=== PATIENT | female | born 1965 | race Native Hawaiian/Other Pacific Islander ===

== ENCOUNTER 2017-09-22 13:51 | Inpatient (IN) | payer BC ==
[2017-09-22 13:54] VITALS: BMI 25.4
--- NOTE | 2017-09-22 14:09 | ED PDOC ---
Arrival/HPI - General Chief Complaint: Psychiatric Evaluation Time Seen by Provider: 09/22/17 13:57 Historian: Patient, Family (patient's children gave preliminary info ) - History of Present Illness Narrative History of Present Illness (Text): 09/22/17 14:10 51 year old female, with a past medical history that includes hypertension, presents to the emergency department for evaluation s/p suicidal overdose, at 12 :00. Family reports she found out her was cheating on her, and became depressed and suicidal. Family states a family member had to remove all sharp objects that could be used as weapons. Family states she then found Naproxen and consumed approximately 30 tabs. Patient states she does not remember how many pills she took. Patient also states she is feeling nauseous. Patient denies any fever, chills, headache, dizziness, chest pain, shortness of breath, cough, abdominal pain, vomiting, diarrhea, back pain, neck pain, urinary/bowel changes, or any other complaint. 09/22/17 16:56 Time/Duration: 1-3 hours Symptom Onset: Sudden Symptom Course: Unchanged Activities at Onset: Light Context: Home Past Medical History - Provider Review Nursing Documentation Reviewed: Yes - Cardiac Hx Hypertension: Yes - Psychiatric Hx Substance Use: No - Surgical History Hx Orthopedic Surgery: Yes Family/Social History - Physician Review Nursing Documentation Reviewed: Yes Family/Social History: No Known Family HX Smoking Status: Never Smoked Hx Alcohol Use: No Hx Substance Use: No Allergies/Home Meds Allergies/Adverse Reactions: Allergies No Known Allergies Allergy (Verified 09/22/17 13:57) Home Medications: Home Meds Medication Instructions Recorded Confirmed Olmesartan Medoxomil [Benicar] 20 mg PO DAILY 09/22/17 09/22/17 Review of Systems - Physician Review All systems were reviewed & negative as marked: Yes - Review of Systems Constitutional: Normal. absent: Fevers, Night Sweats Eyes: Normal ENT: Normal Respiratory: Normal. absent: SOB, Cough Cardiovascular: Normal. absent: Chest Pain Gastrointestinal: Nausea. absent: Abdominal Pain, Diarrhea, Vomiting Genitourinary Female: Normal. absent: Urine Output Changes Musculoskeletal: Normal. absent: Back Pain, Neck Pain Skin: Normal Neurological: Normal. absent: Headache, Dizziness Endocrine: Normal Hemo/Lymphatic: Normal Psychiatric: Depression (s/p finding out about cheating ), Suicidal Ideation (s/p finding out about cheating ) Physical Exam Vital Signs Reviewed: Yes Vital Signs Temp Pulse Resp BP Pulse Ox 09/22/17 17:00 86 18 110/70 98 09/22/17 15:52 97.6 F 87 18 104/60 98 09/22/17 13:52 98.3 F 96 H 18 131/70 100 Temperature: Afebrile Blood Pressure: Normal Pulse: Regular Respiratory Rate: Normal Appearance: Positive for: Well-Appearing, Non-Toxic, Comfortable Pain Distress: None Mental Status: Positive for: Alert and Oriented X 3 - Systems Exam Head: Present: Atraumatic, Normocephalic Pupils: Present: PERRL Extroacular Muscles: Present: EOMI Conjunctiva: Present: Normal Mouth: Present: Moist Mucous Membranes Neck: Present: Normal Range of Motion Respiratory/Chest: Present: Clear to Auscultation, Good Air Exchange. No: Respiratory Distress, Accessory Muscle Use Cardiovascular: Present: Regular Rate and Rhythm, Normal S1, S2. No: Murmurs Abdomen: No: Tenderness, Distention, Peritoneal Signs Back: Present: Normal Inspection Upper Extremity: Present: Normal Inspection. No: Cyanosis, Edema Lower Extremity: Present: Normal Inspection. No: Edema Neurological: Present: GCS=15, CN II-XII Intact, Speech Normal Skin: Present: Warm, Dry, Normal Color. No: Rashes Psychiatric: Present: Alert, Oriented x 3, Normal Insight, Normal Concentration Medical Decision Making ED Course and Treatment: 09/22/17 14:20 Impression: 51 year old female presents to the emergency department with an overdose. pt report naproxen. Plan: -- EKG -- Labs -- Chest X-ray -- Zofran -- Urinalysis -- Reassess and disposition Prior Visits: Notes and results from previous visits were reviewed. Progress Notes: 09/22/17 14:41 EKG reviewed, shows: Normal sinus rhythm @ 62bpm QTc measure of [address] and T changes 09/22/17 15:00 Chest X-ray reviewed by radiologist, shows: Poor inspiration with low lung volumes, crowded bronchovascular markings and minor bibasilar atelectasis bibasilar atelectasis. 09/22/17 15:07 Discussed case with poison control, recommend supportive management. state pt can be medically cleared. 09/22/17 16:55 pt reassesed observed 3+ hours. nausea resolved. no vomiting sleeping in nad. medically cleared. accepted to psych. 09/22/17 16:56 - Lab Interpretations Lab Results: 09/22/17 14:24 09/22/17 14:24 Lab Results 09/22/17 16:05: Urine Opiates Screen Negative, Urine Methadone Screen Negative, Ur Barbiturates Screen Negative, Ur Phencyclidine Scrn Negative, Ur Amphetamines Screen Negative, U Benzodiazepines Scrn Negative, U Oth Cocaine Metabols Negative, U Cannabinoids Screen Negative 09/22/17 16:05: Urine Color Yellow, Urine Appearance Clear, Urine pH 6.0, Ur Specific [place] 1.010, Urine Protein Negative, Urine Glucose (UA) Negative, Urine Ketones Trace H, Urine Blood Trace-intact H, Urine Nitrate Negative, Urine Bilirubin Negative, Urine Urobilinogen 0.2, Ur Leukocyte Esterase Negative , Urine RBC 2 - 5, Urine WBC 0 - 2, Ur Epithelial Cells 4 - 5, Urine Bacteria Mod, Urine HCG, Qual Negative 09/22/17 14:24: Alcohol, Quantitative < 10 09/22/17 14:24: Salicylates < 1 L, Acetaminophen < 10.0 L 09/22/17 14:24: Sodium 140, Potassium 3.4 L, Chloride 104, Carbon Dioxide 21, Anion Gap 18, BUN 9, Creatinine 0.5 L, Est GFR ( Amer) > 60, Est GFR (Non -Af Amer) > 60, Random Glucose 124 H, Calcium 9.5, Magnesium 2.0, Total Bilirubin 1.6 H, AST 22, ALT 25, Alkaline Phosphatase 64, Total Protein 7.6, Albumin 4.1, Globulin 3.5, Albumin/Globulin Ratio 1.2 09/22/17 14:24: WBC 11.3 H, RBC 4.63, Hgb 12.1, Hct 35.7 L, MCV 77.1 L, MCH 26.1 , MCHC 33.9, RDW 15.9 H, Plt Count 377, MPV 9.0, Gran % 76.0 H, Lymph % (Auto) 18.2 L, [place] % (Auto) 5.4, Eos % (Auto) 0.2 L, Baso % (Auto) 0.2, Gran # 8.59 H , Lymph # (Auto) 2.1, [place] # (Auto) 0.6, Eos # (Auto) 0.0, Baso # (Auto) 0.02 - RAD Interpretation Radiology Orders: 09/22/17 14:07 CHEST PORTABLE [RAD] Stat - Medication Orders Current Medication Orders: Acetaminophen (Tylenol 325mg Tab) 650 mg PO Q6 PRN PRN Reason: Pain, Mild (1-3) Al Hydrox/Mg Hydrox/Simethicone (Maalox Plus 30 Ml) 30 ml PO DAILY PRN PRN Reason: Indigestion / Heartburn Ibuprofen (Motrin Tab) 400 mg PO Q6 PRN PRN Reason: Pain, moderate (4-7) Magnesium Hydroxide (Milk Of Magnesia) 30 ml PO DAILY PRN PRN Reason: Constipation Zaleplon (Sonata) 5 mg PO HS PRN PRN Reason: Insomnia Discontinued Medications Sodium Chloride (Sodium Chloride 0.9%) 1,000 mls @ 999 mls/hr IV .Q1H1M STA Stop: 09/22/17 15:54 Last Admin: 09/22/17 15:00 Dose: 999 mls/hr eMAR Start Stop Document 09/22/17 15:00 EWO (Rec: 09/22/17 15:00 [facility] [id number]) Intravenous Solution Start Date 09/22/17 Start Time 15:00 End Date 09/22/17 End time 16:00 Total Infusion Time 60 Ondansetron HCl (Zofran Inj) 4 mg IVP STAT STA Stop: 09/22/17 14:14 Last Admin: 09/22/17 14:22 Dose: 4 mg IVP Administration Document 09/22/17 14:22 EWO (Rec: 09/22/17 14:23 EWO [id number]) Charges for Administration # of IVP Administrations 1 Ondansetron HCl (Zofran Inj) 4 mg IVP STAT STA Stop: 09/22/17 14:55 Last Admin: 09/22/17 15:00 Dose: 4 mg IVP Administration Document 09/22/17 15:00 EWO (Rec: 09/22/17 15:00 O [id number]) Charges for Administration # of IVP Administrations 1 - Scribe Statement The provider has reviewed the documentation as recorded by the Scribkrystina Csaon All medical record entries made by the Donitaibe were at my direction and personally dictated by me. I have reviewed the chart and agree that the record accurately reflects my personal performance of the history, physical exam, medical decision making, and the department course for this patient. I have also personally directed, reviewed, and agree with the discharge instructions and disposition. Disposition/Present on Arrival - Present on Arrival Any Indicators Present on Arrival: No History of DVT/PE: No History of Uncontrolled Diabetes: No Urinary Catheter: No History of Decub. Ulcer: No History Surgical Site Infection Following: None - Disposition Have Diagnosis and Disposition been Completed?: Yes Diagnosis: Overdose, Depression Disposition: HOSPITALIZED Disposition Time: 16:58 Patient Problems: Current Active Problems Problem Status Onset Depression Acute Overdose Acute Condition: STABLE
[2017-09-22 14:31] LABS: BASO # 0.02 K/mm3 (0.0-2.0); BASO % 0.2 % (0.0-3.0); EOS % 0.2 % (1.5-5.0); GRAN # 8.59 (1.4-6.5); HEMOGLOBIN 12.1 g/dL (12.0-16.0); LYMPH # 2.1 (1.2-3.4); LYMPH % 18.2 % (22.0-35.0); MEAN CELL VOLUME 77.1 fl (80.0-105.0); MEAN CORPUSCULAR HEMOGLOBIN 26.1 pg (25.0-35.0); MEAN CORPUSCULAR HGB CONC 33.9 g/dl (31.0-37.0); MONO # 0.6 (0.1-0.6); MONO % 5.4 % (1.0-6.0); RBC 4.63 10^6/uL (3.5-6.1); RED CELL DISTRIBUTION WIDTH 15.9 % (11.5-14.5); WHITE BLOOD COUNT 11.3 10^3/ul (4.5-11.0)
--- NOTE | 2017-09-22 14:31 | RAD ---
Date of service: 09/22/2017 HISTORY: pysch COMPARISON: Comparison chest 12/16/2013 FINDINGS: LUNGS: Poor inspiration with low lung volumes, crowded bronchovascular markings and minor bibasilar atelectasis bibasilar atelectasis. PLEURA: No significant pleural effusion identified, no pneumothorax apparent. CARDIOVASCULAR: Heart size upper limits of normal OSSEOUS STRUCTURES: No significant abnormalities. VISUALIZED UPPER ABDOMEN: Normal. OTHER FINDINGS: None. IMPRESSION: Poor inspiration with low lung volumes, crowded bronchovascular markings and minor bibasilar atelectasis bibasilar atelectasis.
[2017-09-22 14:40] LABS: ACETAMINOPHEN < 10.0 ug/ml (10.0-20.0); ALB/GLOB RATIO 1.2 (1.1-1.8); ALBUMIN 4.1 g/dL (3.0-4.8); ALT/SGPT 25 U/L (7-56); AST/SGOT 22 U/L (14-36); BLOOD UREA NITROGEN 9 mg/dL (7-21); CALCIUM 9.5 mg/dL (8.4-10.5); GFR AFRICAN-AMERICAN > 60; GFR NON-AFRICAN AMERICAN > 60; SALICYLATE < 1 mg/dL (2.0-20.0)
[2017-09-22] MEDS ORDERED: Sodium Chloride 0.9% 1,000 ML IV STA (14:54)
[2017-09-22 16:46] LABS: URINE BILIRUBIN NEGATIVE (NEGATIVE); URINE BLOOD TRACE-INTACT (NEGATIVE); URINE GLUCOSE (UA) NEGATIVE (NEGATIVE); URINE LEUKOCYTE ESTERASE NEGATIVE Leu/uL (NEGATIVE); URINE PROTEIN NEGATIVE mg/dL (<30 mg/dL); URINE UROBILINOGEN 0.2 E.U./dL (<1 E.U./dL)
[2017-09-22 16:47] LABS: URINE COLOR YELLOW (YELLOW)
[2017-09-22 16:48] LABS: URINE APPEARANCE CLEAR (CLEAR)
[2017-09-22 16:49] LABS: HCG,QUALITATIVE URINE NEGATIVE (NEGATIVE)
[2017-09-22 16:51] LABS: URINE BACTERIA MOD (NEG); URINE WBC 0 - 2 /hpf (0-6)
[2017-09-22 17:01] LABS: BARBITURATES, UR NEGATIVE (NEGATIVE); BENZODIAZEPINES, UR NEGATIVE (NEGATIVE); OPIATES, UR NEGATIVE (NEGATIVE); PHENCYCLIDINE, UR NEGATIVE (NEGATIVE)
[2017-09-22 17:44] VITALS: O2SAT 99
[2017-09-22] MEDS ORDERED: Magnesium Hydroxide Susp 30 ml UD PO PRN (19:09)
[2017-09-22] MEDS ORDERED: Alum-Mag Hydrox-Simethicone Susp (30 mL) PO PRN (19:10)
--- NOTE | 2017-09-23 06:50 | PCM.BM ---
<Nuris Mercedes - Last Filed: 09/23/17 06:50> Treatment Plan Problems - Problems identified on initial assessmt high risk suicide Date Initiated: 09/22/17 Time Initiated: 20:35 Assessment reference: NA Status: Active ineffective coping Date Initiated: 09/22/17 Time Initiated: 20:35 Date resolved: 09/22/17 Assessment reference: NA Status: Active hopelessness and helplessness Date Initiated: 09/22/17 Time Initiated: 20:35 Assessment reference: NA Status: Active <Alexus Martinez - Last Filed: 09/23/17 10:29> - Diagnosis (1) Depression Status: Acute Interventions: group, milieu and supportive tx Psychiatric medications will not be restarted at this time. These symptoms appear temporary and adjustment related Outreach to family for further collateral. Patient gives consent to speak with her adult children. 09/23/17 10:29 <Venus Brantley - Last Filed: 09/24/17 16:48> Family Contact Family involvement: Family/SO is involved Family contact name: Cynthia Tipton(daughter) Family contacted how many times per week?: 2 <Mini Velasquez - Last Filed: 09/25/17 10:14> Treatment Plan Problems - Problems identified on initial assessmt high risk suicide Date Initiated: 09/22/17 Time Initiated: 20:35 Assessment reference: NA Status: Active ineffective coping Date Initiated: 09/22/17 Time Initiated: 20:35 Date resolved: 09/22/17 Assessment reference: NA Status: Active hopelessness and helplessness Date Initiated: 09/22/17 Time Initiated: 20:35 Assessment reference: NA Status: Active
[2017-09-23 07:22] VITALS: RESP 20
[2017-09-23 07:30] LABS: HDL CHOLESTEROL 65 mg/dL (29-60)
[2017-09-23 07:40] LABS: LDL CHOLESTEROL 97 mg/dL (0-129)
--- NOTE | 2017-09-23 10:29 | PCM.PSYCH ---
Initial Psychiatric Evaluation - Initial Psychiatric Evaluation Type of Admission: Voluntary Patient's Reaction to Hospitalization: Patient is a 51 year old Iranian female, with no formal psychiatric history who presented to the ER yesterday s/p impulsive overdose of 30 Naproxen tablets after learning that her was cheating on her while he was in the [facility]. During my interview at bedside, patient presents as calm, coherent and goal directed. She is well-oriented to month, year, location and circumstances. Patient has no history of depression or similar prior incidents. Patient indicated that the overdose was "impulsive, stupid and dumb". She is remorseful about her behavior and reports that she never wanted to . States she just wanted to sleep [to escape the knowledge of her husbands affair]. Patient learned that her was cheating by checking his facebook messages. ER notes indicate that family reported patient was very upset and threatened to harm herself. Family felt that they had to remove all sharp objects as a precautionary measure and found the empty bottle of Naproxen. Thereafter they called for an ambulance. Patient has been in good control on the unit and has consistently reported that she has no plan to ever harm herself again. She does seem to be demonstrating the appropriate level of remorse in consideration of her actions though was initially guarded regarding how she learned of her husbands affair (patient was reassured that this information would not be shared). Her affect is constricted however this may be secondary to reported ongoing nausea from naproxen overdose. She is clearly not hallucination or having any difficulties with perceptual disturbance. Patient wants to go home and expresses intent to submit 48 hour letter. Of note: patient has traveled back from the [facility] yesterday and in [place] at this time. PSYCHIATRIC HISTORY No outpatient No medications No inpatient No prior SA SOCIAL HISTORY Patient was born and raised in the [facility]. x 23 years. She has a 23 yo daughter Jumana and 25 yo son Rudy. Patient resides with her and adult son. They rent an apartment house. 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 Her works in [employer]. Patient does not have any drug, alcohol or tobacco issues. Current Medications: Active Medications Generic Name Dose Route Start Last Admin Trade Name Freq PRN Reason Stop Dose Admin Acetaminophen 650 mg 09/22/17 18:51 Tylenol 325mg Tab PO Q6 PRN Pain, Mild (1-3) Al Hydrox/Mg Hydrox/Simethicone 30 ml 09/22/17 19:10 Maalox Plus 30 Ml PO DAILY PRN Indigestion / Heartburn Ibuprofen 400 mg 09/22/17 18:51 Motrin Tab PO Q6 PRN Pain, moderate (4-7) Magnesium Hydroxide 30 ml 09/22/17 19:09 Milk Of Magnesia PO DAILY PRN Constipation Zaleplon 5 mg 09/22/17 22:00 Sonata PO HS PRN Insomnia Past Psychiatric History - Past Psychiatric History Pertinent Medical Hx (Current Medical&Sleep Prob, Allergies): Allergies Allergy/AdvReac Type Severity Reaction Status Date / Time No Known Allergies Allergy Verified 09/22/17 13:57 Olmesartan Medoxomil [Benicar] 20 mg PO DAILY 09/22/17 Mental Status Examination - Personal Presentation Personal Presentation: Looks stated age - Affect Affect: Constricted - Motor Activity Motor Activity: Calm - Reliability in Providing Information Reliability in Providing Information: Fair - Speech Speech: Organized - Mood Mood: Depressed, Neutral - Formal Thought Process Formal Thought Process: No Impairment - Obsessions/Compulsions Obsessions: No Compulsions: No - Cognitive Functions Orientation: Person, Place, Situation, Time Sensorium: Alert Attention/Concentration: Attentive Estimate of Intelligence: Average Memory: Recent intact, as evidence by: Ability to recall events of the day, Remote intact, as evidenced by: Abilit to recall sig. life events, Remote intact , as evidenced by: Ability to recall historical events - Risk Risk: Suicidal - Strength & Assets Inventory Strength & Assets Inventory: Intelligence, Family support, Employment status, Cooperative DSM 5 DX - DSM 5 DSM 5 Diagnosis: Adjustment disorder with depression - Recommended/Plan of Treatment Treatment Recommendations and Plan of Treatment: * group, milieu and supportive tx * Psychiatric medications will not be restarted at this time. These symptoms appear temporary and adjustment related * Outreach to family for further collateral. Patient gives consent to speak with her adult children. * Vitals reviewed and noted below: Selected Entries 09/23/17 07:28 Temperature 97.5 F L Pulse Rate 87 Respiratory 20 Rate Blood Pressure 116/76 * Admission labs noted below: Laboratory Tests 09/22/17 09/22/17 09/22/17 14:24 14:24 14:24 WBC 11.3 H RBC 4.63 Hgb 12.1 Hct 35.7 L MCV 77.1 L MCH 26.1 MCHC 33.9 RDW 15.9 H Plt Count 377 MPV 9.0 Gran % 76.0 H Lymph % (Auto) 18.2 L [place] % (Auto) 5.4 Eos % (Auto) 0.2 L Baso % (Auto) 0.2 Gran # 8.59 H Lymph # (Auto) 2.1 [place] # (Auto) 0.6 Eos # (Auto) 0.0 Baso # (Auto) 0.02 Sodium 140 Potassium 3.4 L Chloride 104 Carbon Dioxide 21 Anion Gap 18 BUN 9 Creatinine 0.5 L Est GFR ( Amer) > 60 Est GFR (Non-Af Amer) > 60 Random Glucose 124 H Calcium 9.5 Magnesium 2.0 Total Bilirubin 1.6 H AST 22 ALT 25 Alkaline Phosphatase 64 Total Protein 7.6 Albumin 4.1 Globulin 3.5 Albumin/Globulin Ratio 1.2 Triglycerides Cholesterol LDL Cholesterol Direct HDL Cholesterol Urine Color Urine Appearance Urine pH Ur Specific [place] Urine Protein Urine Glucose (UA) Urine Ketones Urine Blood Urine Nitrate Urine Bilirubin Urine Urobilinogen Ur Leukocyte Esterase Urine RBC Urine WBC Ur Epithelial Cells Urine Bacteria Urine HCG, Qual Salicylates < 1 L Urine Opiates Screen Urine Methadone Screen Acetaminophen < 10.0 L Ur Barbiturates Screen Ur Phencyclidine Scrn Ur Amphetamines Screen U Benzodiazepines Scrn U Oth Cocaine Metabols U Cannabinoids Screen Alcohol, Quantitative 09/22/17 09/22/17 09/22/17 14:24 16:05 16:05 WBC RBC Hgb Hct MCV MCH MCHC RDW Plt Count MPV Gran % Lymph % (Auto) [place] % (Auto) Eos % (Auto) Baso % (Auto) Gran # Lymph # (Auto) [place] # (Auto) Eos # (Auto) Baso # (Auto) Sodium Potassium Chloride Carbon Dioxide Anion Gap BUN Creatinine Est GFR ( Amer) Est GFR (Non-Af Amer) Random Glucose Calcium Magnesium Total Bilirubin AST ALT Alkaline Phosphatase Total Protein Albumin Globulin Albumin/Globulin Ratio Triglycerides Cholesterol LDL Cholesterol Direct HDL Cholesterol Urine Color Yellow Urine Appearance Clear Urine pH 6.0 Ur Specific [place] 1.010 Urine Protein Negative Urine Glucose (UA) Negative Urine Ketones Trace H Urine Blood Trace-intact H Urine Nitrate Negative Urine Bilirubin Negative Urine Urobilinogen 0.2 Ur Leukocyte Esterase Negative Urine RBC 2 - 5 Urine WBC 0 - 2 Ur Epithelial Cells 4 - 5 Urine Bacteria Mod Urine HCG, Qual Negative Salicylates Urine Opiates Screen Negative Urine Methadone Screen Negative Acetaminophen Ur Barbiturates Screen Negative Ur Phencyclidine Scrn Negative Ur Amphetamines Screen Negative U Benzodiazepines Scrn Negative U Oth Cocaine Metabols Negative U Cannabinoids Screen Negative Alcohol, Quantitative < 10 09/23/17 07:00 WBC RBC Hgb Hct MCV MCH MCHC RDW Plt Count MPV Gran % Lymph % (Auto) [place] % (Auto) Eos % (Auto) Baso % (Auto) Gran # Lymph # (Auto) [place] # (Auto) Eos # (Auto) Baso # (Auto) Sodium Potassium Chloride Carbon Dioxide Anion Gap BUN Creatinine Est GFR ( Amer) Est GFR (Non-Af Amer) Random Glucose Calcium Magnesium Total Bilirubin AST ALT Alkaline Phosphatase Total Protein Albumin Globulin Albumin/Globulin Ratio Triglycerides 51 Cholesterol 201 H LDL Cholesterol Direct 97 HDL Cholesterol 65 H Urine Color Urine Appearance Urine pH Ur Specific [place] Urine Protein Urine Glucose (UA) Urine Ketones Urine Blood Urine Nitrate Urine Bilirubin Urine Urobilinogen Ur Leukocyte Esterase Urine RBC Urine WBC Ur Epithelial Cells Urine Bacteria Urine HCG, Qual Salicylates Urine Opiates Screen Urine Methadone Screen Acetaminophen Ur Barbiturates Screen Ur Phencyclidine Scrn Ur Amphetamines Screen U Benzodiazepines Scrn U Oth Cocaine Metabols U Cannabinoids Screen Alcohol, Quantitative - Smoking Cessation Smoking Cessation Initiated: No
[2017-09-23] MEDS ORDERED: Potassium Chloride 20 mEq ER Tab PO ONE (10:36)
[2017-09-23] MEDS ORDERED: Pantoprazole 40 mg EC Tab PO STA ×2 (12:34→16:18)
--- NOTE | 2017-09-23 16:24 | CARD ---
APPROVED REPORT Date of service: 09/22/2017 EKG Measurement Heart [id number] <Conclusion> Sinus rhythm with 1st degree AV block Nonspecific T wave abnormality Prolonged QT Abnormal ECG
--- NOTE | 2017-09-23 16:44 | CON ---
Copied To: Song Ortega DO Attending MD: Song Ortega DO DATE: 09/23/2017 HISTORY OF PRESENT ILLNESS: I was consulted to the Psychiatric floor. She is a 51-year-old white female who presents that she found out that her was cheating on her and became very depressed and suicidal. Family members had to remove sharp objects away from her because she would use it as weapons. Then, she consumed 30 tablets of naproxen, she did not remember how many tablets, but she thought it was more than 30. She is also feeling nauseous and threw up a few times. PAST MEDICAL HISTORY: Hypertension and reflux. She has sudden acute major reactive depression and hypertension. She had orthopedic surgery in the past. FAMILY HISTORY: No known family history. SOCIAL HISTORY: No smoking, no drinking, no alcohol, no drugs. ALLERGIES: NO KNOWN DRUG ALLERGIES. MEDICATIONS: She tells me she takes Benicar and she takes Dexilant. I discussed that we did not have those two medications here, but we will put her on Cozaar and Protonix, she said that was fine. She is also very nauseous, I put her on some Zofran. REVIEW OF SYSTEMS: No acute vision or hearing changes. No sore throat. No shortness of breath or cough. No chest pain or palpitations. Having lots of nauseousness, lots of indigestion feeling, threw up once with clear fluid. No diarrhea or constipation. No problems urinating. No back pain or neck pain. Skin for what I could tell, is normal. She does not know of any rashes or ulcers. No headaches or dizziness. She is very depressed, but not anxious. She is also suicidal because her was cheating her. PHYSICAL EXAMINATION: VITAL SIGNS: She has 98.3 temp, 96 pulse, 18 respiratory rate, 131/70 blood pressure, 100% O2 sat on room air. GENERAL: She is well appearing, very sad, very inner thoughts. Alert and oriented x3. HEENT: Head is atraumatic, normocephalic. Extraocular muscles are intact. Pupils are reactive to light. Throat is moist. NECK: Supple. HEART: Regular rate. Normal S1 and S2. LUNGS: Decreased breath sounds, but clear to auscultation. Poor inspiration. ABDOMEN: Mild discomfort in the upper middle area, but no guarding, no rebound, no CVA tenderness bowel sounds. EXTREMITIES: Have no edema. NEUROLOGIC: GCS is 15. Cranial nerves II through XII are grossly intact. Normal speech. SKIN: For what I could tell, is normal. Good skin color and turgor. No rashes or ulcers appreciated. PSYCHIATRIC: Alert and oriented x3. Cranial nerves II through XII are grossly intact. She can stick out her tongue at midline. Can raise her arms over head. She can close her eyes tight. She can follow my finger with an H pattern. LYMPHATICS: Thyroid midline. No palpable appreciable lymphadenopathy. LABORATORY DATA: She had multiple tests done. She had a chest x-ray that showed poor inspiration with low lung volumes, crowding bronchovascular markings of mild bibasilar atelectasis. She has a 11.3 white count, 12.1 hemoglobin, 35.7 hematocrit, 377 platelets. She had a drug screen negative for opioids, negative for methadone, negative for barbiturates, negative for amphetamine, negative for cocaine and pot. Urine was positive for moderate bacteria. Negative test. Sodium 140; potassium 3.4, I gave her potassium; BUN 9; creatinine 0.5; GFR is greater than 60; sugar is 124. I will keep an eye on her blood sugar. She is not a diabetic, could be stress related. We will check it tomorrow. Calcium is 9.5. Magnesium is 2. Total bili is 1.6, AST is 22, ALT is 25, alk phos 64. Total protein 7.6, albumin is 4.1. Triglycerides 51, cholesterol 201, LDL 97, HDL is good at 65. Her toxicology was negative. Chest x-ray was with bibasilar atelectasis. So, I will put her on Bactrim for the urine, Cozaar for the blood pressure, potassium for low potassium, Zofran for her nauseousness and vomiting and Protonix for the indigestion. I am going to stop the Motrin that was ordered due to the fact that she overdosed on Naprosyn and she has indigestion and she denied any pain at this time and I will continue with aggressive treatment and care on this nice young lady who is here for reactive depression, nausea, vomiting, GERD, hypertension, UTI, low potassium and bibasilar atelectasis. Thank you very much. Song Ortega DO [facility] # [id number] [place]
[2017-09-23] MEDS: Tmp-Smz 800 mg-160 mg DS Tab PO SCH (17:52)
[2017-09-23 19:44] LABS: BASO # 0.02 K/mm3 (0.0-2.0); BASO % 0.1 % (0.0-3.0); GRAN # 11.28 (1.4-6.5); GRAN % 81.4 % (50.0-68.0); HEMOGLOBIN 12.4 g/dL (12.0-16.0); LYMPH # 1.3 (1.2-3.4); LYMPH % 9.5 % (22.0-35.0); MEAN CELL VOLUME 76.8 fl (80.0-105.0); MEAN CORPUSCULAR HEMOGLOBIN 26.9 pg (25.0-35.0); MEAN PLATELET VOLUME 8.9 fl (7.0-11.0); MONO # 1.3 (0.1-0.6); RBC 4.61 10^6/uL (3.5-6.1); RED CELL DISTRIBUTION WIDTH 16.4 % (11.5-14.5); WHITE BLOOD COUNT 13.9 10^3/ul (4.5-11.0)
[2017-09-24] MEDS ORDERED: Pantoprazole 40 mg EC Tab PO SCH (06:00)
[2017-09-24 07:24] LABS: HEMOGLOBIN 11.9 g/dL (12.0-16.0); MEAN CELL VOLUME 75.8 fl (80.0-105.0); MEAN CORPUSCULAR HEMOGLOBIN 25.5 pg (25.0-35.0); MEAN CORPUSCULAR HGB CONC 33.7 g/dl (31.0-37.0); MEAN PLATELET VOLUME 8.9 fl (7.0-11.0); RBC 4.66 10^6/uL (3.5-6.1); RED CELL DISTRIBUTION WIDTH 16.5 % (11.5-14.5); WHITE BLOOD COUNT 9.2 10^3/ul (4.5-11.0)
[2017-09-24 07:36] LABS: ALB/GLOB RATIO 1.3 (1.1-1.8); ALBUMIN 3.9 g/dL (3.0-4.8); ALT/SGPT 40 U/L (7-56); AST/SGOT 24 U/L (14-36); BLOOD UREA NITROGEN 11 mg/dL (7-21); CALCIUM 8.8 mg/dL (8.4-10.5); GFR AFRICAN-AMERICAN > 60; GFR NON-AFRICAN AMERICAN > 60
[2017-09-24] MEDS: Tmp-Smz 800 mg-160 mg DS Tab PO SCH ×2 (09:08→19:06)
--- NOTE | 2017-09-24 10:24 | PCM.PYCHPN ---
Psychiatric Progress Note - Psychiatric Progress Note Patient seen today, length of contact: 30 min Problems Identified/Issues Discussed: I interviewed patient at bedside and again during treatment team meeting. Patient is alert and can provide correct month, year and circumstances. Eye contact is fair. Patient feels improved and denies any suicidal thoughts or thoughts to harm others. During 1:1 interview by bedside patient was future oriented and looking forward to the of her grandchild (Kortney's first child), due on October 31. Patient plans to go to [place] appointment with her daughter on Sunday. Affect was flat and a little more disconnected--which may be secondary to patient's reserved nature, paranoia or both. She just seems more oddly related and paranoid than yesterday. I spoke with nursing who also observed a change in her functioning. She is requesting to inspect staff IDs, a behavior she didn't demonstrate on Sunday. Her focus was inconsistent during our treatment team meeting and she appeared to have difficult with short term memory--she couldn't remember it that the clock was inaccurately displaying 7;15 am even though she appeared to understand that it was actually 8;15 am when we she was informed just a few minutes prior. She didn't sign the treatment plan though reported intent to sign when this process was reviewed with her again during earlier 1:1 at bedside. Social work also contacted daughter, Kortney (with patient's consent). Kortney confirmed that patient was not at baseline during family visit yesterday. Daughter felt patient's behavior was "off" and assumed it was secondary to the lingering effects of the overdose. Kortney also mentioned that patient hasn't slept well in days prior to admission. Patient denies hallucinations and is not responding to internal stimuli. Diagnostic Results: Adjustment disorder with depression r/o delirium r/o MDD, severe with psychotic fx Medication Change: No Medical Record Reviewed: Yes Consults ordered or reviewed: Appreciate f/u by Dr. Ortega on 09/23/17 Mental Status Examination - Cognitive Function Orientation: Person, Place, Situation Memory: Intact Attention: Poor Concentration: Poor Association: WNL Fund of Knowledge: WNL Decription of patient's judgement and insights: Improved insight and judgement - Mood Mood: Neutral - Affect Affect: Flat - Speech Speech: Appropriate - Formal Thought Process Formal Thought Process: No Impairment Psychotic Thoughts and Behaviors: Patient has denied perceptual disturbance including AVH, PI throughout course. Delusions were not elicited - Suicidal Ideation Suicidal Ideation: No - Homicidal Ideation Homicidal Ideation: No Goal/Treatment Plan - Goal/Treatment Plan Progress Toward Problem(s) and Goals/Treatment Plan: * group, milieu and supportive tx * Psychiatric medications will not be started at this time. The overdose appeared to be adjustment related * Appreciate Outreach to family for further collateral. * Appreciate f/u with Dr. Ortega on 09/23/17. Spoke with Dr. Ortega today about patient's presentation~will be requesting new labs and head CT to evaluate for patient's worsening mental status * Haldol 0.5 mg and ativan 0.5 mg q4 prn: agitation. DOSES ARE DELIBERATELY CONSERVATIVE. Patient is medication naiive and ethnicity is who historically are more prone to EPS with antipsychotics. In addition, etiology of MS changes are still being determined * Seroquel 12.5 mg po HS for disorganization, paranoia and off label for insomnia * Vitals reviewed and noted below: Selected Entries 09/23/17 22:59 Temperature 97.3 F L Pulse Rate 100 H Respiratory 20 Rate Blood Pressure 137/90 * ADMISSION LABS NOTED BELOW: Laboratory Tests 09/22/17 09/22/17 09/22/17 14:24 14:24 14:24 WBC 11.3 H RBC 4.63 Hgb 12.1 Hct 35.7 L MCV 77.1 L MCH 26.1 MCHC 33.9 RDW 15.9 H Plt Count 377 MPV 9.0 Gran % 76.0 H Lymph % (Auto) 18.2 L [place] % (Auto) 5.4 Eos % (Auto) 0.2 L Baso % (Auto) 0.2 Gran # 8.59 H Lymph # (Auto) 2.1 [place] # (Auto) 0.6 Eos # (Auto) 0.0 Baso # (Auto) 0.02 Sodium 140 Potassium 3.4 L Chloride 104 Carbon Dioxide 21 Anion Gap 18 BUN 9 Creatinine 0.5 L Est GFR ( Amer) > 60 Est GFR (Non-Af Amer) > 60 Random Glucose 124 H Calcium 9.5 Magnesium 2.0 Total Bilirubin 1.6 H AST 22 ALT 25 Alkaline Phosphatase 64 Total Protein 7.6 Albumin 4.1 Globulin 3.5 Albumin/Globulin Ratio 1.2 Triglycerides Cholesterol LDL Cholesterol Direct HDL Cholesterol Urine Color Urine Appearance Urine pH Ur Specific [place] Urine Protein Urine Glucose (UA) Urine Ketones Urine Blood Urine Nitrate Urine Bilirubin Urine Urobilinogen Ur Leukocyte Esterase Urine RBC Urine WBC Ur Epithelial Cells Urine Bacteria Urine HCG, Qual Salicylates < 1 L Urine Opiates Screen Urine Methadone Screen Acetaminophen < 10.0 L Ur Barbiturates Screen Ur Phencyclidine Scrn Ur Amphetamines Screen U Benzodiazepines Scrn U Oth Cocaine Metabols U Cannabinoids Screen Alcohol, Quantitative 09/22/17 09/22/17 09/22/17 14:24 16:05 16:05 WBC RBC Hgb Hct MCV MCH MCHC RDW Plt Count MPV Gran % Lymph % (Auto) [place] % (Auto) Eos % (Auto) Baso % (Auto) Gran # Lymph # (Auto) [place] # (Auto) Eos # (Auto) Baso # (Auto) Sodium Potassium Chloride Carbon Dioxide Anion Gap BUN Creatinine Est GFR ( Amer) Est GFR (Non-Af Amer) Random Glucose Calcium Magnesium Total Bilirubin AST ALT Alkaline Phosphatase Total Protein Albumin Globulin Albumin/Globulin Ratio Triglycerides Cholesterol LDL Cholesterol Direct HDL Cholesterol Urine Color Yellow Urine Appearance Clear Urine pH 6.0 Ur Specific [place] 1.010 Urine Protein Negative Urine Glucose (UA) Negative Urine Ketones Trace H Urine Blood Trace-intact H Urine Nitrate Negative Urine Bilirubin Negative Urine Urobilinogen 0.2 Ur Leukocyte Esterase Negative Urine RBC 2 - 5 Urine WBC 0 - 2 Ur Epithelial Cells 4 - 5 Urine Bacteria Mod Urine HCG, Qual Negative Salicylates Urine Opiates Screen Negative Urine Methadone Screen Negative Acetaminophen Ur Barbiturates Screen Negative Ur Phencyclidine Scrn Negative Ur Amphetamines Screen Negative U Benzodiazepines Scrn Negative U Oth Cocaine Metabols Negative U Cannabinoids Screen Negative Alcohol, Quantitative < 10 09/23/17 07:00 WBC RBC Hgb Hct MCV MCH MCHC RDW Plt Count MPV Gran % Lymph % (Auto) [place] % (Auto) Eos % (Auto) Baso % (Auto) Gran # Lymph # (Auto) [place] # (Auto) Eos # (Auto) Baso # (Auto) Sodium Potassium Chloride Carbon Dioxide Anion Gap BUN Creatinine Est GFR ( Amer) Est GFR (Non-Af Amer) Random Glucose Calcium Magnesium Total Bilirubin AST ALT Alkaline Phosphatase Total Protein Albumin Globulin Albumin/Globulin Ratio Triglycerides 51 Cholesterol 201 H LDL Cholesterol Direct 97 HDL Cholesterol 65 H Urine Color Urine Appearance Urine pH Ur Specific [place] Urine Protein Urine Glucose (UA) Urine Ketones Urine Blood Urine Nitrate Urine Bilirubin Urine Urobilinogen Ur Leukocyte Esterase Urine RBC Urine WBC Ur Epithelial Cells Urine Bacteria Urine HCG, Qual Salicylates Urine Opiates Screen Urine Methadone Screen Acetaminophen Ur Barbiturates Screen Ur Phencyclidine Scrn Ur Amphetamines Screen U Benzodiazepines Scrn U Oth Cocaine Metabols U Cannabinoids Screen Alcohol, Quantitative
--- NOTE | 2017-09-24 11:29 | PN ---
Copied To: Song Ortega DO Attending MD: Song Ortega DO DATE: 09/24/2017 SUBJECTIVE: I saw her in the psychiatric unit. She is sitting up in bed. She is very stressed. She is on Bactrim, she is on Cozaar, which she rangel not want to take any more, she wants to take her own Benicar, so I will stop the Cozaar, she had got the potassium, she had got milk of magnesia. She also does not want the Protonix any more, she wants to take her Dexilant, so I will stop that. She is on Sonata, Tylenol, and Zofran. She happens to have bottles of Benicar and Dexilant with her which will have to be bought down to the pharmacy and she could take her own medications, on a regular diet. She is getting a little bit better with her depression. PHYSICAL EXAMINATION: VITAL SIGNS: She has 97.3 temperature, 100 pulse, 137/90 blood pressure, 20 respiratory rate. HEENT: Head is atraumatic, normocephalic. HEART: Regular rate. LUNGS: Decreased breath sounds, but clear. ABDOMEN: Soft. EXTREMITIES: No edema. LABORATORY DATA: She has 9.2 white count, much better; 11.9 hemoglobin; 35.3 hematocrit with 367 platelets. Sodium 139, potassium is 3.9, BUN is 11, creatinine 0.6, GFR is greater than 60, sugar is 105, calcium is 8.8. Total bilirubin is 0.5, AST is 24, ALT is 40, alkaline phosphatase 55, total protein is 7, albumin is 3.9. ASSESSMENT AND PLAN: Overall, she is a little bit better mentally, we have to adjust her medications, I will call down to pharmacy about the change in her medications and I encouraged her to eat and participate. She is here for severe depression, reactive depression, from her cheating on her; nausea; vomiting; gastroesophageal reflux disease; hypertension; urinary tract infection; and low potassium. Song Ortega DO
[2017-09-25] MEDS: Pantoprazole 40 mg EC Tab PO SCH (06:28)
[2017-09-25] MEDS: Tmp-Smz 800 mg-160 mg DS Tab PO SCH ×2 (09:38→17:44)
--- NOTE | 2017-09-25 10:15 | PN ---
Copied To: Song Ortega DO Attending MD: Song Ortega DO DATE: 09/25/2017 SUBJECTIVE: I saw her standing in her room at the door and she is comfortable, feeling better, more appropriate today. She is on Ativan, Bactrim, Cozaar, Haldol, Maalox, milk of magnesia, Protonix, Seroquel, Sonata, Tylenol and Zofran. She has no chest pain or shortness of breath. No abdominal pain. May be a little bit better with her depression. PHYSICAL EXAMINATION: VITAL SIGNS: She has a 97.6 temp; 93 pulse; 130/89 blood pressure, better; 20 respiratory rate. HEENT: Her head is atraumatic, normocephalic. HEART: Regular rate. LUNGS: Decreased breath sounds, but clear. ABDOMEN: Soft, nontender. Positive bowel sounds. EXTREMITIES: No edema. LABORATORY DATA: Last labs on 09/24/2017, CBC was fairly well. Chemistry was fairly well. Urine had a little bit of a UTI. ASSESSMENT AND PLAN: She is currently being treated for depression, nausea, vomiting, gastroesophageal reflux disease, hypertension, urinary tract infection, low potassium, bibasilar atelectasis. I think she is slowly improving. We will continue aggressive treatment and care on Dana Henson. Song Ortega DO [facility]
[2017-09-25 10:52] LABS: PH,URINE 6.5 (4.7-8.0); URINE BILIRUBIN NEGATIVE (NEGATIVE); URINE BLOOD SMALL (NEGATIVE); URINE GLUCOSE (UA) NEGATIVE (NEGATIVE); URINE LEUKOCYTE ESTERASE TRACE Leu/uL (NEGATIVE); URINE PROTEIN NEGATIVE mg/dL (<30 mg/dL); URINE UROBILINOGEN 0.2 E.U./dL (<1 E.U./dL)
[2017-09-25 10:57] LABS: URINE APPEARANCE CLEAR (CLEAR); URINE COLOR LIGHT YELLOW (YELLOW)
[2017-09-25 11:36] LABS: URINE BACTERIA MOD (NEG)
--- NOTE | 2017-09-25 12:14 | PCM.PYCHPN ---
Psychiatric Progress Note - Psychiatric Progress Note Patient seen today, length of contact: 30 min Problems Identified/Issues Discussed: I interviewed patient in the dayroom today. She is alert and oriented to correct month, year and circumstances. Eye contact is fair and focus is improved since yesterday. Grooming is good. Patient appears more appropriate today and less oddly related. She is notably less paranoid and delusions were not elicited. She is still reserved and quiet but this seems less to be less attributable to issues with perceptual disturbance. She continues to deny any suicidal thoughts or thoughts to harm others. Patient also reported that she slept better last night and denies any side effects from seroquel. She readily admits to having problems with sleep in the days/weeks leading up to her admission. This appears to be anxiety related as opposed prakash as patient does not exhibit symptoms consistent with an elevated mood process. Patient retracted her 48 hour yesterday. Presently she is in much better impulse control than yesterday, patient tried elope and required prns at that time. MMSE today was 25/30 Patient denies hallucinations and is not responding to internal stimuli. I/J are improving Diagnostic Results: Adjustment disorder with depression delirium improving r/o MDD, severe with psychotic fx Medication Change: Yes (SEROQUEL INCREASED) Medical Record Reviewed: Yes Mental Status Examination - Cognitive Function Orientation: Person, Place, Situation Memory: Intact Attention: Poor (improving) Concentration: Poor (improving) Association: WNL Fund of Knowledge: WNL Decription of patient's judgement and insights: Improved insight and judgement - Mood Mood: Neutral - Affect Affect: Flat (focus better and a little more appropriately reactive today) - Speech Speech: Appropriate - Formal Thought Process Formal Thought Process: No Impairment, Delusions (None elicited today), Paranoia (Seems to be improving at this time) Psychotic Thoughts and Behaviors: Patient has denied perceptual disturbance including AVH, PI throughout course. Delusions were not elicited - Suicidal Ideation Suicidal Ideation: No - Homicidal Ideation Homicidal Ideation: No Goal/Treatment Plan - Goal/Treatment Plan Progress Toward Problem(s) and Goals/Treatment Plan: * group, milieu and supportive tx * Psychiatric medications for depression will not be started at this time. The overdose appeared to be adjustment related * Appreciate Outreach to family for further collateral, confirmation of HPI noted in SW noted dated 09/24/17. * Appreciate f/u with Dr. Ortega on 09/23/17, 09/24/17 and 09/25/17~patient may have had a small UTI contributing to her delirium-like symptoms yesterday, she is being treated with Bactrim at this time. * Haldol 0.5 mg and ativan 0.5 mg q4 prn: agitation. DOSES ARE DELIBERATELY CONSERVATIVE. Patient is medication naive and ethnicity is who historically are more prone to EPS with antipsychotics. In addition, etiology of MS changes are still being determined though they appear, at this time secondary to the effects of the overdose, lack of sleep and delirium secondary to UTI. * Seroquel increased to 25 mg po HS for disorganization, paranoia and off label for insomnia--patient's mental status is definitely showing some improvement today. * Vitals reviewed and noted below: Selected Entries 09/25/17 09/25/17 07:07 09:38 Temperature 97.6 F Pulse Rate 93 H 93 H Respiratory 20 Rate Blood Pressure 130/89 * CURRENT LABS NOTED BELOW: Laboratory Results - last 24 hr 09/25/17 10:00 Urine Color Light yellow Urine Appearance Clear Urine pH 6.5 Ur Specific [place] <= 1.005 Urine Protein Negative Urine Glucose (UA) Negative Urine Ketones Trace H Urine Blood Small H Urine Nitrate Negative Urine Bilirubin Negative Urine Urobilinogen 0.2 Ur Leukocyte Esterase Trace H Urine RBC 5 - 10 Urine WBC 2 - 5 Ur Epithelial Cells 4 - 5 Urine Bacteria Mod Laboratory Tests 09/22/17 09/22/17 09/22/17 14:24 14:24 14:24 WBC 11.3 H RBC 4.63 Hgb 12.1 Hct 35.7 L MCV 77.1 L MCH 26.1 MCHC 33.9 RDW 15.9 H Plt Count 377 MPV 9.0 Gran % 76.0 H Lymph % (Auto) 18.2 L [place] % (Auto) 5.4 Eos % (Auto) 0.2 L Baso % (Auto) 0.2 Gran # 8.59 H Lymph # (Auto) 2.1 [place] # (Auto) 0.6 Eos # (Auto) 0.0 Baso # (Auto) 0.02 Sodium 140 Potassium 3.4 L Chloride 104 Carbon Dioxide 21 Anion Gap 18 BUN 9 Creatinine 0.5 L Est GFR ( Amer) > 60 Est GFR (Non-Af Amer) > 60 Random Glucose 124 H Calcium 9.5 Magnesium 2.0 Total Bilirubin 1.6 H AST 22 ALT 25 Alkaline Phosphatase 64 Total Protein 7.6 Albumin 4.1 Globulin 3.5 Albumin/Globulin Ratio 1.2 Triglycerides Cholesterol LDL Cholesterol Direct HDL Cholesterol Urine Color Urine Appearance Urine pH Ur Specific [place] Urine Protein Urine Glucose (UA) Urine Ketones Urine Blood Urine Nitrate Urine Bilirubin Urine Urobilinogen Ur Leukocyte Esterase Urine RBC Urine WBC Ur Epithelial Cells Urine Bacteria Urine HCG, Qual Salicylates < 1 L Urine Opiates Screen Urine Methadone Screen Acetaminophen < 10.0 L Ur Barbiturates Screen Ur Phencyclidine Scrn Ur Amphetamines Screen U Benzodiazepines Scrn U Oth Cocaine Metabols U Cannabinoids Screen Alcohol, Quantitative 09/22/17 09/22/17 09/22/17 14:24 16:05 16:05 WBC RBC Hgb Hct MCV MCH MCHC RDW Plt Count MPV Gran % Lymph % (Auto) [place] % (Auto) Eos % (Auto) Baso % (Auto) Gran # Lymph # (Auto) [place] # (Auto) Eos # (Auto) Baso # (Auto) Sodium Potassium Chloride Carbon Dioxide Anion Gap BUN Creatinine Est GFR ( Amer) Est GFR (Non-Af Amer) Random Glucose Calcium Magnesium Total Bilirubin AST ALT Alkaline Phosphatase Total Protein Albumin Globulin Albumin/Globulin Ratio Triglycerides Cholesterol LDL Cholesterol Direct HDL Cholesterol Urine Color Yellow Urine Appearance Clear Urine pH 6.0 Ur Specific [place] 1.010 Urine Protein Negative Urine Glucose (UA) Negative Urine Ketones Trace H Urine Blood Trace-intact H Urine Nitrate Negative Urine Bilirubin Negative Urine Urobilinogen 0.2 Ur Leukocyte Esterase Negative Urine RBC 2 - 5 Urine WBC 0 - 2 Ur Epithelial Cells 4 - 5 Urine Bacteria Mod Urine HCG, Qual Negative Salicylates Urine Opiates Screen Negative Urine Methadone Screen Negative Acetaminophen Ur Barbiturates Screen Negative Ur Phencyclidine Scrn Negative Ur Amphetamines Screen Negative U Benzodiazepines Scrn Negative U Oth Cocaine Metabols Negative U Cannabinoids Screen Negative Alcohol, Quantitative < 10 09/23/17 07:00 WBC RBC Hgb Hct MCV MCH MCHC RDW Plt Count MPV Gran % Lymph % (Auto) [place] % (Auto) Eos % (Auto) Baso % (Auto) Gran # Lymph # (Auto) [place] # (Auto) Eos # (Auto) Baso # (Auto) Sodium Potassium Chloride Carbon Dioxide Anion Gap BUN Creatinine Est GFR ( Amer) Est GFR (Non-Af Amer) Random Glucose Calcium Magnesium Total Bilirubin AST ALT Alkaline Phosphatase Total Protein Albumin Globulin Albumin/Globulin Ratio Triglycerides 51 Cholesterol 201 H LDL Cholesterol Direct 97 HDL Cholesterol 65 H Urine Color Urine Appearance Urine pH Ur Specific [place] Urine Protein Urine Glucose (UA) Urine Ketones Urine Blood Urine Nitrate Urine Bilirubin Urine Urobilinogen Ur Leukocyte Esterase Urine RBC Urine WBC Ur Epithelial Cells Urine Bacteria Urine HCG, Qual Salicylates Urine Opiates Screen Urine Methadone Screen Acetaminophen Ur Barbiturates Screen Ur Phencyclidine Scrn Ur Amphetamines Screen U Benzodiazepines Scrn U Oth Cocaine Metabols U Cannabinoids Screen Alcohol, Quantitative
--- NOTE | 2017-09-25 13:53 | CT ---
Date of service: 09/25/2017 PROCEDURE: CT Chest without contrast HISTORY: atelectasis COMPARISON: None available. TECHNIQUE: Contiguous axial images were obtained through the chest without intravenous contrast enhancement. Sagittal and coronal reconstructions were performed. Radiation dose (DLP): 159 mGy-cm. This CT exam was performed using one or more of the following dose reduction techniques: Automated exposure control, adjustment of the mA and/or kV according to patient size, and/or use of iterative reconstruction technique. FINDINGS: LUNGS: Clear lungs. Visualized airway clear. MEDIASTINUM: Unremarkable thoracic aorta. No aneurysm. Normal sized heart. Main pulmonary artery unremarkable. No vascular congestion. No lymphadenopathy. PLEURA: No pleural fluid. No pneumothorax. BONES: No fracture. No destructive lesion. UPPER ABDOMEN: Grossly unremarkable. OTHER FINDINGS: None. IMPRESSION: Unremarkable non-contrast enhanced CT of the chest.
[2017-09-26] MEDS: Pantoprazole 40 mg EC Tab PO SCH (06:47)
[2017-09-26 07:22] VITALS: BP 126/83; PULSE 86; TEMP 98.6
[2017-09-26] MEDS: Tmp-Smz 800 mg-160 mg DS Tab PO SCH (09:56)
--- NOTE | 2017-09-26 10:45 | PN ---
Copied To: Song Ortega DO Attending MD: Song Ortega DO DATE: 09/26/2017 SUBJECTIVE: I saw her in her room this morning on the psychiatric floor. She is very comfortable. She tells me she is feeling better, much better than when she came in. She is on Ativan, Bactrim, Cozaar, Haldol, Maalox, milk of magnesia, Protonix, Seroquel, Tylenol and Zofran. PHYSICAL EXAMINATION: VITAL SIGNS: 98.6 temp, 86 pulse, 126/83 blood pressure, 20 respiratory rate. GENERAL: She is eating well, going to the bathroom well and walking well and she is comfortable. HEENT: Head is atraumatic, normocephalic. HEART: Regular rate. LUNGS: Clear to auscultation. ABDOMEN: Soft. EXTREMITIES: No edema. LABORATORY DATA: Last labs on 09/24/2017, the white count was 9.2, hemoglobin 11.9, platelets are 367. On 09/24/2017, the chemistry was good. 139 sodium, potassium 3.9, BUN is 11, creatinine 0.6, GFR is greater than 60, sugar is 105, calcium is 8.8. Liver enzymes were good. ASSESSMENT AND PLAN: She is talking to me about when she goes home, what medicine will see need. We will also go back on her regular blood pressure pills instead of the ones we given, also she will take her regular gastroesophageal reflux disease medication. She will continue with the Bactrim for 4 more days for the urinary tract infection. I think it is helping her too. She has no symptoms and as per Psychiatry. Song Ortega DO
--- NOTE | 2017-09-26 11:08 | PCM.PYCHDC ---
Mental Status Examination - Mental Status Examination Orientation: Person, Place, Situation Memory: Intact Mood: Neutral Affect: Flat (mild) Attention: WNL Concentration: WNL Association: WNL Fund of Knowledge: WNL Formal Thought Process: No Impairment Description of patient's judgement and insight: Much improved and fair insight and judgement Psychotic Thoughts and Behaviors: Patient has denied perceptual disturbance including AVH, PI throughout course. Delusions were not elicited Suicidal Ideation: No Current Homicidal Ideation?: No Discharge Summary - Discharge Note Reason for Hospitalization: Patient is a 51 year old Green[place] female, with no formal psychiatric history who presented to the ER yesterday s/p impulsive overdose of 30 Naproxen tablets after learning that her was cheating on her while he was in the [facility]. Psychiatric History (includes Medical, Family, Personal Hx): see hpi Laboratory Data: Laboratory Tests 09/22/17 09/22/17 09/22/17 14:24 14:24 14:24 WBC 11.3 H RBC 4.63 Hgb 12.1 Hct 35.7 L MCV 77.1 L MCH 26.1 MCHC 33.9 RDW 15.9 H Plt Count 377 MPV 9.0 Gran % 76.0 H Lymph % (Auto) 18.2 L Johnston % (Auto) 5.4 Eos % (Auto) 0.2 L Baso % (Auto) 0.2 Gran # 8.59 H Lymph # (Auto) 2.1 Johnston # (Auto) 0.6 Eos # (Auto) 0.0 Baso # (Auto) 0.02 Sodium 140 Potassium 3.4 L Chloride 104 Carbon Dioxide 21 Anion Gap 18 BUN 9 Creatinine 0.5 L Est GFR ( Amer) > 60 Est GFR (Non-Af Amer) > 60 Random Glucose 124 H Hemoglobin A1c Calcium 9.5 Magnesium 2.0 Total Bilirubin 1.6 H AST 22 ALT 25 Alkaline Phosphatase 64 Total Protein 7.6 Albumin 4.1 Globulin 3.5 Albumin/Globulin Ratio 1.2 Triglycerides Cholesterol LDL Cholesterol Direct HDL Cholesterol Urine Color Urine Appearance Urine pH Ur Specific [place] Urine Protein Urine Glucose (UA) Urine Ketones Urine Blood Urine Nitrate Urine Bilirubin Urine Urobilinogen Ur Leukocyte Esterase Urine RBC Urine WBC Ur Epithelial Cells Urine Bacteria Urine HCG, Qual Salicylates < 1 L Urine Opiates Screen Urine Methadone Screen Acetaminophen < 10.0 L Ur Barbiturates Screen Ur Phencyclidine Scrn Ur Amphetamines Screen U Benzodiazepines Scrn U Oth Cocaine Metabols U Cannabinoids Screen Alcohol, Quantitative 09/22/17 09/22/17 09/22/17 14:24 16:05 16:05 WBC RBC Hgb Hct MCV MCH MCHC RDW Plt Count MPV Gran % Lymph % (Auto) Johnston % (Auto) Eos % (Auto) Baso % (Auto) Gran # Lymph # (Auto) Johnston # (Auto) Eos # (Auto) Baso # (Auto) Sodium Potassium Chloride Carbon Dioxide Anion Gap BUN Creatinine Est GFR ( Amer) Est GFR (Non-Af Amer) Random Glucose Hemoglobin A1c Calcium Magnesium Total Bilirubin AST ALT Alkaline Phosphatase Total Protein Albumin Globulin Albumin/Globulin Ratio Triglycerides Cholesterol LDL Cholesterol Direct HDL Cholesterol Urine Color Yellow Urine Appearance Clear Urine pH 6.0 Ur Specific [place] 1.010 Urine Protein Negative Urine Glucose (UA) Negative Urine Ketones Trace H Urine Blood Trace-intact H Urine Nitrate Negative Urine Bilirubin Negative Urine Urobilinogen 0.2 Ur Leukocyte Esterase Negative Urine RBC 2 - 5 Urine WBC 0 - 2 Ur Epithelial Cells 4 - 5 Urine Bacteria Mod Urine HCG, Qual Negative Salicylates Urine Opiates Screen Negative Urine Methadone Screen Negative Acetaminophen Ur Barbiturates Screen Negative Ur Phencyclidine Scrn Negative Ur Amphetamines Screen Negative U Benzodiazepines Scrn Negative U Oth Cocaine Metabols Negative U Cannabinoids Screen Negative Alcohol, Quantitative < 10 09/23/17 09/23/17 09/23/17 06:30 07:00 19:41 WBC 13.9 H D RBC 4.61 Hgb 12.4 Hct 35.4 L MCV 76.8 L MCH 26.9 MCHC 35.0 RDW 16.4 H Plt Count 396 MPV 8.9 Gran % 81.4 H Lymph % (Auto) 9.5 L Johnston % (Auto) 9.0 H Eos % (Auto) 0.0 L Baso % (Auto) 0.1 Gran # 11.28 H Lymph # (Auto) 1.3 Johnston # (Auto) 1.3 H Eos # (Auto) 0.0 Baso # (Auto) 0.02 Sodium Potassium Chloride Carbon Dioxide Anion Gap BUN Creatinine Est GFR ( Amer) Est GFR (Non-Af Amer) Random Glucose Hemoglobin A1c 5.7 Calcium Magnesium Total Bilirubin AST ALT Alkaline Phosphatase Total Protein Albumin Globulin Albumin/Globulin Ratio Triglycerides 51 Cholesterol 201 H LDL Cholesterol Direct 97 HDL Cholesterol 65 H Urine Color Urine Appearance Urine pH Ur Specific [place] Urine Protein Urine Glucose (UA) Urine Ketones Urine Blood Urine Nitrate Urine Bilirubin Urine Urobilinogen Ur Leukocyte Esterase Urine RBC Urine WBC Ur Epithelial Cells Urine Bacteria Urine HCG, Qual Salicylates Urine Opiates Screen Urine Methadone Screen Acetaminophen Ur Barbiturates Screen Ur Phencyclidine Scrn Ur Amphetamines Screen U Benzodiazepines Scrn U Oth Cocaine Metabols U Cannabinoids Screen Alcohol, Quantitative 09/24/17 09/24/17 09/25/17 07:00 07:00 10:00 WBC 9.2 D RBC 4.66 Hgb 11.9 L Hct 35.3 L MCV 75.8 L MCH 25.5 MCHC 33.7 RDW 16.5 H Plt Count 367 MPV 8.9 Gran % Lymph % (Auto) Johnston % (Auto) Eos % (Auto) Baso % (Auto) Gran # Lymph # (Auto) Johnston # (Auto) Eos # (Auto) Baso # (Auto) Sodium 139 Potassium 3.9 Chloride 107 Carbon Dioxide 20 L Anion Gap 16 BUN 11 Creatinine 0.6 L Est GFR ( Amer) > 60 Est GFR (Non-Af Amer) > 60 Random Glucose 105 Hemoglobin A1c Calcium 8.8 Magnesium Total Bilirubin 0.5 AST 24 ALT 40 Alkaline Phosphatase 55 Total Protein 7.0 Albumin 3.9 Globulin 3.1 Albumin/Globulin Ratio 1.3 Triglycerides Cholesterol LDL Cholesterol Direct HDL Cholesterol Urine Color Light yellow Urine Appearance Clear Urine pH 6.5 Ur Specific [place] <= 1.005 Urine Protein Negative Urine Glucose (UA) Negative Urine Ketones Trace H Urine Blood Small H Urine Nitrate Negative Urine Bilirubin Negative Urine Urobilinogen 0.2 Ur Leukocyte Esterase Trace H Urine RBC 5 - 10 Urine WBC 2 - 5 Ur Epithelial Cells 4 - 5 Urine Bacteria Mod Urine HCG, Qual Salicylates Urine Opiates Screen Urine Methadone Screen Acetaminophen Ur Barbiturates Screen Ur Phencyclidine Scrn Ur Amphetamines Screen U Benzodiazepines Scrn U Oth Cocaine Metabols U Cannabinoids Screen Alcohol, Quantitative Abnormal Lab Results 09/25/17 10:00 Urine Color Light yellow Urine Appearance Clear Urine pH 6.5 Ur Specific [place] <= 1.005 Urine Protein Negative Urine Glucose (UA) Negative Urine Ketones Trace H Urine Blood Small H Urine Nitrate Negative Urine Bilirubin Negative Urine Urobilinogen 0.2 Ur Leukocyte Esterase Trace H Urine RBC 5 - 10 Urine WBC 2 - 5 Ur Epithelial Cells 4 - 5 Urine Bacteria Mod Consultations:: List each consultation separately and include: 1. Reason for request. 2. Findings. 3. Follow-up Consultations: Appreciate f/u with Dr. Ortega on 09/23/17, 09/24/17, 09/25/17 and 09/26/17~ patient was treated with Bactrim for a UTI which likely contributed to her delirium-like symptoms on 09/24/17 Summary of Hospital Course include:: 1. Description of specific treatment plan utilized for patients during their course of treatmen. 2. Summarize the time- course for resolution of acute symptoms and/or regressed behaviors. 3. Describe issues identified and worked on during hospitalization. 4. Describe medication utilized. 5. Describe medical problems identified and treated. 6. Reassessment of suicide risk Summary of Hospital Course: Patient is a 51 year old [place] female, with no formal psychiatric history who presented to the ER yesterday s/p impulsive overdose of 30 Naproxen tablets after learning that her was cheating on her while he was in the [facility]. During my interview at bedside, patient presents as calm, coherent and goal directed. She is well-oriented to month, year, location and circumstances. Patient has no history of depression or similar prior incidents. Patient indicated that the overdose was "impulsive, stupid and dumb". She is remorseful about her behavior and reports that she never wanted to . States she just wanted to sleep [to escape the knowledge of her husbands affair]. Patient learned that her was cheating by checking his facebook messages. ER notes indicate that family reported patient was very upset and threatened to harm herself. Family felt that they had to remove all sharp objects as a precautionary measure and found the empty bottle of Naproxen. Thereafter they called for an ambulance. Patient has been in good control on the unit and has consistently reported that she has no plan to ever harm herself again. She does seem to be demonstrating the appropriate level of remorse in consideration of her actions though was initially guarded regarding how she learned of her husbands affair (patient was reassured that this information would not be shared). Her affect is constricted however this may be secondary to reported ongoing nausea from naproxen overdose. She is clearly not hallucination or having any difficulties with perceptual disturbance. Patient wants to go home and expresses intent to submit 48 hour letter. Of note: patient has traveled back from the [facility] yesterday and in [place] at this time. PSYCHIATRIC HISTORY No outpatient No medications No inpatient No prior SA SOCIAL HISTORY Patient was born and raised in the [facility]. x 23 years. She has a 23 yo daughter Jumana and 25 yo son Rudy. Patient resides with her and adult son. They rent an apartment house. 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 Her works in park maintenance. Patient does not have any drug, alcohol or tobacco issues. PROGRESS NOTE 09/24/17 I interviewed patient at bedside and again during treatment team meeting. Patient is alert and can provide correct month, year and circumstances. Eye contact is fair. Patient feels improved and denies any suicidal thoughts or thoughts to harm others. During 1:1 interview by bedside patient was future oriented and looking forward to the of her grandchild (Kortney's first child), due on October 31. Patient plans to go to [place] appointment with her daughter on Sunday. Affect was flat and a little more disconnected--which may be secondary to patient's reserved nature, paranoia or both. She just seems more oddly related and paranoid than yesterday. I spoke with nursing who also observed a change in her functioning. She is requesting to inspect staff IDs, a behavior she didn't demonstrate on Sunday. Her focus was inconsistent during our treatment team meeting and she appeared to have difficult with short term memory--she couldn't remember it that the clock was inaccurately displaying 7;15 am even though she appeared to understand that it was actually 8;15 am when we she was informed just a few minutes prior. She didn't sign the treatment plan though reported intent to sign when this process was reviewed with her again during earlier 1:1 at bedside. Social work also contacted daughter, Kortney (with patient's consent). Kortney confirmed that patient was not at baseline during family visit yesterday. Daughter felt patient's behavior was "off" and assumed it was secondary to the lingering effects of the overdose. Kortney also mentioned that patient hasn't slept well in days prior to admission. Patient denies hallucinations and is not responding to internal stimuli. PROGRESS NOTE 09/25/17 I interviewed patient in the dayroom today. She is alert and oriented to correct month, year and circumstances. Eye contact is fair and focus is improved since yesterday. Grooming is good. Patient appears more appropriate today and less oddly related. She is notably less paranoid and delusions were not elicited. She is still reserved and quiet but this seems less to be less attributable to issues with perceptual disturbance. She continues to deny any suicidal thoughts or thoughts to harm others. Patient also reported that she slept better last night and denies any side effects from seroquel. She readily admits to having problems with sleep in the days/weeks leading up to her admission. This appears to be anxiety related as opposed prakash as patient does not exhibit symptoms consistent with an elevated mood process. Patient retracted her 48 hour yesterday. Presently she is in much better impulse control than yesterday, patient tried elope and required prns at that time. MMSE today was 25/30 Patient denies hallucinations and is not responding to internal stimuli. I/J are improving DISCHARGE NOTE ON 09/26/17 I interviewed patient in the dayroom to assess continued stability for discharge. Patient is alert and well-oriented to month, year and circumstances. Grooming is good and eye contact is good and much improved. Patient feels she is thinking more clearly and feels improved since admission. Patient denies any suicidal thoughts or thoughts to harm others. 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 She is future oriented and looking forward to the of her daughter's first child, due on October 31. She has not spoken with her but appears to forgive him. Has indicated that he is a "good man" and that she still thinks that he is a good man despite his recent infidelity. Affect is calm and a little flat which may be secondary to patient's reserved nature. Patient denies hallucinations and is not responding to internal stimuli. Thought process is coherent. Paranoia has resolved and delusions were not elicited. Patient feels comfortable with discharge today and denies any new concerns. Denies acute discomfort or pain. - Diagnosis (1) Depression Current Visit: Yes Status: Acute Priority: Medium - Final Diagnosis (DSM 5) Condition upon Discharge: STABLE DSM 5: Adjustment disorder with depression delirium RESOLVED r/o MDD, severe with psychotic fx Disposition: HOME/ ROUTINE Follow-up Treatment Plan: * PLEASE REFER TO SW NOTE FOR AFTERCARE PLANS * SEROQUEL 25 MG PO HS prn #14 DAYS +1RF CALLED INTO [facility] 09/26/17 AT 11AM. Indications, dosing, possible s/e associated with Seroquel was discussed with patient. Patient was informed that using Seroquel prn for insomnia was an OFF- LABEL USE of this medication. * Psychiatric medications for depression were note started. The overdose appeared to be adjustment related as patient reports (daughter confirms) good functioning prior to incident. * Appreciate Outreach to family for further collateral, confirmation of HPI noted in SW noted dated 09/24/17. * Appreciate f/u with Dr. Ortega on 09/23/17, 09/24/17 and 09/25/17~patient may have had a small UTI contributing to her delirium-like symptoms yesterday, she is being treated with Bactrim at this time. CHEST CT 09/25/17 Unremarkable non-contrast CT of the chest * Laboratory Results - last 24 hr 09/25/17 10:00 Urine Color Light yellow Urine Appearance Clear Urine pH 6.5 Ur Specific [place] <= 1.005 Urine Protein Negative Urine Glucose (UA) Negative Urine Ketones Trace H Urine Blood Small H Urine Nitrate Negative Urine Bilirubin Negative Urine Urobilinogen 0.2 Ur Leukocyte Esterase Trace H Urine RBC 5 - 10 Urine WBC 2 - 5 Ur Epithelial Cells 4 - 5 Urine Bacteria Mod Laboratory Tests 09/22/17 09/22/17 09/22/17 14:24 14:24 14:24 WBC 11.3 H RBC 4.63 Hgb 12.1 Hct 35.7 L MCV 77.1 L MCH 26.1 MCHC 33.9 RDW 15.9 H Plt Count 377 MPV 9.0 Gran % 76.0 H Lymph % (Auto) 18.2 L Johnston % (Auto) 5.4 Eos % (Auto) 0.2 L Baso % (Auto) 0.2 Gran # 8.59 H Lymph # (Auto) 2.1 Johnston # (Auto) 0.6 Eos # (Auto) 0.0 Baso # (Auto) 0.02 Sodium 140 Potassium 3.4 L Chloride 104 Carbon Dioxide 21 Anion Gap 18 BUN 9 Creatinine 0.5 L Est GFR ( Amer) > 60 Est GFR (Non-Af Amer) > 60 Random Glucose 124 H Calcium 9.5 Magnesium 2.0 Total Bilirubin 1.6 H AST 22 ALT 25 Alkaline Phosphatase 64 Total Protein 7.6 Albumin 4.1 Globulin 3.5 Albumin/Globulin Ratio 1.2 Triglycerides Cholesterol LDL Cholesterol Direct HDL Cholesterol Urine Color Urine Appearance Urine pH Ur Specific [place] Urine Protein Urine Glucose (UA) Urine Ketones Urine Blood Urine Nitrate Urine Bilirubin Urine Urobilinogen Ur Leukocyte Esterase Urine RBC Urine WBC Ur Epithelial Cells Urine Bacteria Urine HCG, Qual Salicylates < 1 L Urine Opiates Screen Urine Methadone Screen Acetaminophen < 10.0 L Ur Barbiturates Screen Ur Phencyclidine Scrn Ur Amphetamines Screen U Benzodiazepines Scrn U Oth Cocaine Metabols U Cannabinoids Screen Alcohol, Quantitative 09/22/17 09/22/17 09/22/17 14:24 16:05 16:05 WBC RBC Hgb Hct MCV MCH MCHC RDW Plt Count MPV Gran % Lymph % (Auto) Johnston % (Auto) Eos % (Auto) Baso % (Auto) Gran # Lymph # (Auto) Johnston # (Auto) Eos # (Auto) Baso # (Auto) Sodium Potassium Chloride Carbon Dioxide Anion Gap BUN Creatinine Est GFR ( Amer) Est GFR (Non-Af Amer) Random Glucose Calcium Magnesium Total Bilirubin AST ALT Alkaline Phosphatase Total Protein Albumin Globulin Albumin/Globulin Ratio Triglycerides Cholesterol LDL Cholesterol Direct HDL Cholesterol Urine Color Yellow Urine Appearance Clear Urine pH 6.0 Ur Specific [place] 1.010 Urine Protein Negative Urine Glucose (UA) Negative Urine Ketones Trace H Urine Blood Trace-intact H Urine Nitrate Negative Urine Bilirubin Negative Urine Urobilinogen 0.2 Ur Leukocyte Esterase Negative Urine RBC 2 - 5 Urine WBC 0 - 2 Ur Epithelial Cells 4 - 5 Urine Bacteria Mod Urine HCG, Qual Negative Salicylates Urine Opiates Screen Negative Urine Methadone Screen Negative Acetaminophen Ur Barbiturates Screen Negative Ur Phencyclidine Scrn Negative Ur Amphetamines Screen Negative U Benzodiazepines Scrn Negative U Oth Cocaine Metabols Negative U Cannabinoids Screen Negative Alcohol, Quantitative < 10 09/23/17 07:00 WBC RBC Hgb Hct MCV MCH MCHC RDW Plt Count MPV Gran % Lymph % (Auto) Johnston % (Auto) Eos % (Auto) Baso % (Auto) Gran # Lymph # (Auto) Johnston # (Auto) Eos # (Auto) Baso # (Auto) Sodium Potassium Chloride Carbon Dioxide Anion Gap BUN Creatinine Est GFR ( Amer) Est GFR (Non-Af Amer) Random Glucose Calcium Magnesium Total Bilirubin AST ALT Alkaline Phosphatase Total Protein Albumin Globulin Albumin/Globulin Ratio Triglycerides 51 Cholesterol 201 H LDL Cholesterol Direct 97 HDL Cholesterol 65 H Urine Color Urine Appearance Urine pH Ur Specific [place] Urine Protein Urine Glucose (UA) Urine Ketones Urine Blood Urine Nitrate Urine Bilirubin Urine Urobilinogen Ur Leukocyte Esterase Urine RBC Urine WBC Ur Epithelial Cells Urine Bacteria Urine HCG, Qual Salicylates Urine Opiates Screen Urine Methadone Screen Acetaminophen Ur Barbiturates Screen Ur Phencyclidine Scrn Ur Amphetamines Screen U Benzodiazepines Scrn U Oth Cocaine Metabols U Cannabinoids Screen Alcohol, Quantitative - Smoking Cessation Smoking Cessation Medication prescribed: No - Antipsychotic Medications Pt discharged on 2 or more routine antipsychotic medications: No
== END 2017-09-26 15:49 | disposition home or self-care (01) | DRG 881 ==
LOC: ED 13:51 → ERH 16:54 → PSYC 18:00
PROVIDERS: ADMIT Psychiatry & Neurology Psychiatry; ATTEND Psychiatry & Neurology Psychiatry
DX: F43.21 Adjustment disorder with depressed mood (principal); N39.0 Urinary tract infection, site not specified; J98.11 Atelectasis; T39.312A Poisoning by propionic acid derivatives, intentional self-harm, initial encounter; I10 Essential (primary) hypertension; K21.9 Gastro-esophageal reflux disease without esophagitis; R41.0 Disorientation, unspecified